=== PATIENT | female | born 1970 ===

== ENCOUNTER 2020-03-18 18:56 | Emergency (ER) | payer SELFPAY ==
[~2020-03-18] VITALS: Ht 152.4 cm; Wt 59.1 kg
[2020-03-18 18:57] VITALS: BP 133/96
== END 2020-03-18 20:00 | disposition left against medical advice (07) ==
LOC: EMS 18:59
DX: R42 Dizziness and giddiness (principal); Z53.21 Procedure and treatment not carried out due to patient leaving prior to being seen by health care provider